=== PATIENT | male | born 1935 | race Caucasian/White ===

== ENCOUNTER 2016-10-03 05:55 | Inpatient (IN) | payer BC, MEDICARE ==
--- NOTE | 2016-09-27 23:41 | HP ---
PREOPERATIVE HISTORY AND PHYSICAL: DATE OF OFFICE VISIT: 09/27/16 DATE OF ADMISSION/SURGERY: 10/03/16 ATTENDING SURGEON: Esau Gentile MD PROCEDURE: Left total knee replacement. CHIEF COMPLAINT: Left knee pain. HISTORY OF PRESENT ILLNESS: Mr. Han is an 80-year-old male who presents to the clinic for ongoing left knee pain due to severe osteoarthritis. He has failed conservative measures to include Tylenol, bracing, and injections and therefore has agreed to undergo a left total hip replacement with Dr. Gentile on 10/03/16. PAST MEDICAL HISTORY: History of pulmonary embolism 30 years ago, has not had a repeat episode, the original episode was related to trauma and benign prostatic hypertrophy. PAST SURGICAL HISTORY: 1. Total hip replacement in 2013. 2. Bilateral knee arthroscopic surgery. 3. Tonsillectomy and adenoidectomy. 4. Appendectomy. 5. Left prosthetic eye surgery in 1994. 6. Pelvic surgery in 2006. MEDICATIONS: 1. Oxycodone 5 mg 1/2 to 1 tablet by mouth every 4 to 6 hours as needed. 2. Terazosin HCl 5 mg 1 by mouth daily. 3. Finasteride 5 mg 1 by mouth daily. 4. Glucosamine/chondroitin 2 by mouth daily. 5. Fish oil 1200 mg 1 by mouth daily. 6. One Daily Adults 50 Plus 1 by mouth daily. 7. Tylenol extra strength 500 mg 2 tabs by mouth as needed. 8. Dulcolax 5 mg 1 by mouth as needed. ALLERGIES: SULFA ANTIBIOTICS. FAMILY HISTORY: Denies. SOCIAL HISTORY: The patient lives with his . 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 Denies smoking. Occasional alcohol consumption. REVIEW OF SYSTEMS: General: Negative for fever, chills, or night sweats. No known anesthesia problems. HEENT: Negative for headache, lightheadedness, or syncopal episodes. Integumentary: Negative for abrasions, lesions, or open wounds. Cardiothoracic: Negative for chest pain, palpitations, or edema. Negative for hypertension. Pulmonary: Negative for shortness of breath with exertion, chronic cough, or COPD. GI: Negative for nausea, vomiting, diarrhea , constipation, or GERD. : Positive for BPH. Negative for history of UTIs or kidney problems. Musculoskeletal: Positive for current complaint. Neurologic: Negative for paresthesias, numbness, history of seizure, stroke, or epilepsy. Endocrine: Negative for diabetes or thyroid issues. Hematologic: Negative for easy bruising, anemia, or excessive bleeding. Positive for history of DVT. Infectious Disease: Negative for history of MRSA, hepatitis C, or HIV. PHYSICAL EXAMINATION GENERAL: A well-developed, well-nourished 80-year-old male, in no acute distress. VITAL SIGNS: Height 69, weight 178, pulse 74, blood pressure 114/64, respiratory rate 14, temperature 97.7, BMI 26.3. HEENT: Normocephalic, atraumatic. PERRLA. NECK: Supple. Throat clear. PULMONARY: Lungs are clear to auscultation bilaterally. No wheezing, rhonchi, or rales. CARDIAC: Regular rate and rhythm. S1, S2. No murmurs, gallops, or rubs. No edema. ABDOMEN: Positive bowel sounds. Soft, nontender. NEUROLOGIC: Alert and oriented x3. Cranial nerves grossly intact. Sensation intact to light touch. MUSCULOSKELETAL: Left lower extremity: Skin is intact. Mild effusion and medial joint line tenderness. Range of motion from 0 to 95. MCL and LCL are stable. Stable Priscila's; +2 dorsalis pedis and posterior tibialis pulse. Sensation is intact to light touch distally. DIAGNOSTIC STUDIES: Multiple view x-rays of the left knee revealed severe bone -on- bone medial arthritis with sclerosis and osteophyte formation. Also the presence of patellofemoral arthritis. IMPRESSION: Severe left knee osteoarthritis. PLAN/RECOMMENDATIONS: The patient is scheduled to undergo a left total knee replacement with Dr. Gentile on 10/03/16. He states he has been cleared by his primary care doctor, Dr. Malhotra. He will return to the clinic in one month postop for followup and x-ray. A prescription for Percocet was sent to his pharmacy for postoperative pain management. He was instructed to take [id number] stool softeners for opioid-induced constipation. PRIYA WILBURN [id number]/[facility] #: [id number] [facility] HOSPITALAngela
[~2016-10-03 05:55] MED LIST: Buffered Lidocaine 1% SYR 3ML* 3 ML/SYR SYRINGE INTRADERM ONE
[2016-10-03] MEDS ORDERED: ceFAZolin 2 GM PREMIX (*) 2 GM/50 ML BAG IVPB ONE (06:11)
[2016-10-03] MEDS ORDERED: Bupivacaine 0.5% W/EPI SDV* 30 ML VIAL ONE ×2 (07:23→08:31)
[2016-10-03] MEDS ORDERED: Midazolam* 1 MG/ML 5 ML VIAL (5 MG) ONE (07:32)
[2016-10-03] MEDS ORDERED: fentaNYL* 50 MCG/ML 2 ML VIAL (100 MCG VIAL) ONE (07:32)
[2016-10-03] MEDS ORDERED: Morphine PF AMP (0.5MG/ML)* 5 MG/10 ML AMP ONE (07:34)
[2016-10-03] MEDS ORDERED: Bupivacaine 0.5% SDV PF* 30 ML VIAL ONE (08:03)
[2016-10-03] MEDS ORDERED: Propofol* 10 MG/ML 20 ML BTL IV PUSH ONE (08:17)
[2016-10-03] MEDS ORDERED: Ondansetron INJ* 2 MG/ML VIAL IV PRN ×2 (08:51→11:08)
[2016-10-03] MEDS ORDERED: fentaNYL* 50 MCG/ML 2 ML VIAL (100 MCG VIAL) IV PRN (08:51)
[2016-10-03] MEDS ORDERED: Nalbuphine* 20 MG/ML 1 ML VIAL IV PRN (08:51)
[2016-10-03] MEDS ORDERED: DiMENhydriNATE IV* 50 MG/ML VIAL IV PUSH PRN (08:51)
[2016-10-03] MEDS ORDERED: Metoclopramide IV* 5 MG/ML 2 ML VIAL IV PRN (08:51)
[2016-10-03] MEDS ORDERED: Naloxone* 0.4 MG/ML 1 ML VIAL IV PRN (08:51)
[2016-10-03] MEDS ORDERED: HYDROmorphone INJ* 1 MG/ML CARPUJECT SYRINGE IV PRN (08:51)
[2016-10-03] MEDS ORDERED: oxyCODONE/Acetamin 5/325 MG* TAB PO PRN (11:08)
[2016-10-03] MEDS ORDERED: diPHENhydraMINE IV* 50 MG/ML 1 ml VIAL (BENADRYL) IV PRN (11:08)
[2016-10-03] MEDS ORDERED: Temazepam CAP* 15 MG PO PRN (11:08)
[2016-10-03] MEDS ORDERED: Acetaminophen TAB* 325 MG PO PRN (11:08)
--- NOTE | 2016-10-03 12:33 | RAD ---
HISTORY: Postop left knee arthroplasty COMPARISONS: February 14, 2016 VIEWS: 2, Frontal and lateral views of the left knee FINDINGS: BONE DENSITY: Normal. BONES: The patient is status post left knee arthroplasty. There is no hardware failure or osteolysis. JOINTS: The patient is status post left knee arthroplasty. ALIGNMENT: There is no dislocation. SOFT TISSUES: There is post surgical change to the soft tissues. OTHER FINDINGS: None. IMPRESSION: STATUS POST LEFT KNEE ARTHROPLASTY
[2016-10-03] MEDS: ceFAZolin 1 GM in Dextrose (*) 1 GM/50 ML BAG IVPB SCH ×2 (16:03→21:18)
[2016-10-03] MEDS: oxyCODONE/Acetamin 5/325 MG* TAB PO PRN ×3 (16:35→23:06)
[2016-10-03] MEDS: Ferrous Sulfate TAB* 325 MG PO SCH (20:55)
[2016-10-03] MEDS: Finasteride TAB* 5 MG PO SCH (20:55)
[2016-10-03] MEDS: Terazosin CAP* 5 MG PO SCH (20:55)
[2016-10-04] MEDS: oxyCODONE/Acetamin 5/325 MG* TAB PO PRN ×5 (04:15→21:41)
[2016-10-04] MEDS: ceFAZolin 1 GM in Dextrose (*) 1 GM/50 ML BAG IVPB SCH (05:51)
[2016-10-04 06:07] LABS: Hematocrit 30 % (42-52); Hemoglobin 10.3 g/dl (14.0-18.0)
[2016-10-04 06:23] LABS: BUN/Creatinine Ratio 22.6 (8-20); EGFR Non-African American 77.8 (>60); Potassium 4.3 mmol/L (3.5-5.0)
[2016-10-04] MEDS: Morphine INJ* 2 MG/ML 1 ML CARPUJECT IV PRN (07:18)
[2016-10-04] MEDS ORDERED: oxyCODONE TAB* 5 MG TAB PO PRN (08:18)
--- NOTE | 2016-10-04 08:24 | PN ---
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 His pain control is good - he anticipates constipation. Active Problems: Active Problems History of arthroplasty of left knee (Acute) Z96.652 Pulse irregularity (Acute) R09.89 COPD (chronic obstructive pulmonary disease) (Chronic) J44.9 History of melanoma (Chronic) Z85.820 History of pelvic fracture (Chronic) Z87.81 History of prostate cancer (Chronic) Z85.46 History of total right hip arthroplasty (Chronic) Z96.641 Hypercholesterolemia (Chronic) E78.00 Spinal stenosis (Chronic) M48.00 Current Medications: Current Medications Acetaminophen (Tylenol Tab*) 650 mg PO Q4H PRN PRN Reason: PAIN Aspirin (Aspirin Tab*) 325 mg PO DAILY [facility] Bisacodyl (Dulcolax Supp*) 10 mg MO DAILY PRN PRN Reason: constipation Diphenhydramine HCl (Benadryl Iv*) 12.5 mg IV Q6H PRN PRN Reason: PRURITIS Docusate Sodium (Colace Cap*) 100 mg PO BID [facility] Enoxaparin Sodium (Lovenox(*)) 30 mg SUBCUT Q24H [facility] Ferrous Sulfate (Ferrous Sulfate Tab*) 325 mg PO BID [facility] Last Admin: 10/03/16 20:55 Dose: 325 mg Finasteride (Proscar Tab*) 5 mg PO BEDTIME [facility] Last Admin: 10/03/16 20:55 Dose: 5 mg Fish Oil (Fish Oil (Nf)) 1,200 mg PO DAILY [facility] PRN Reason: Protocol Lactated Ringer's (Lactated Ringers 1000 Ml Bag*) 1,000 mls @ 100 mls/hr IV PER RATE [facility] Last Admin: 10/04/16 05:55 Dose: 100 mls/hr Morphine Sulfate (Morphine Inj (Syringe)*) 1 mg IV Q2H PRN PRN Reason: PAIN Last Admin: 10/04/16 07:18 Dose: 1 mg Multivitamins/Minerals (Theragran/Minerals Tab*) 1 tab PO DAILY [facility] Ondansetron HCl (Zofran Inj*) 4 mg IV Q6H PRN PRN Reason: nausea Oxycodone/Acetaminophen (Percocet 5/325 Tab*) 1 tab PO Q4H PRN PRN Reason: PAIN Last Admin: 10/03/16 23:46 Dose: 1 tab Oxycodone/Acetaminophen (Percocet 5/325 Tab*) 2 tab PO Q4H PRN PRN Reason: PAIN Last Admin: 10/04/16 04:15 Dose: 2 tab Polyethylene Glycol/Electrolytes (Miralax*) 17 gm PO DAILY PRN PRN Reason: Constipation Temazepam (Restoril Cap*) 15 mg PO BEDTIME PRN PRN Reason: INSOMNIA Terazosin HCl (Hytrin Cap*) 5 mg PO BEDTIME [facility] Last Admin: 10/03/16 20:55 Dose: 5 mg - Review of Systems Pulmonary: Positive: COPD Negative: Cough, Sputum, Hemoptysis, Wheezing, Respiratory Distress, Shortness of Breath Cardiology: Negative: Chest Pain, Palpitations, Swelling of Ankles Gastroenterology: Negative: Abdominal Pain, Nausea, Vomiting Home Medications: Home Medications Medication Instructions Recorded Confirmed Type Finasteride TAB* [Proscar TAB*] 5 mg PO BEDTIME 07/04/12 10/03/16 History Terazosin CAP* [Hytrin CAP 5 MG*] 5 mg PO BEDTIME 07/04/12 10/03/16 History Acetaminophen TAB* [Tylenol TAB*] 650 mg PO BID PRN 06/11/13 10/03/16 History Kqxbnqhltud-Czebxupmygn-Jmhtgj 1 pow PO DAILY 06/11/13 10/03/16 History [Glucosamine & Chrondroiti] Multiple Vitamins W/ Minerals 1 liq PO DAILY 06/11/13 10/03/16 History [Multivitamin] [place]-3 Fatty Acids [Fish Oil] 1,200 mg PO DAILY 06/11/13 10/03/16 History Allergies: Allergies Allergy/AdvReac Type Severity Reaction Status Date / Time Sulfamethoxazole Allergy Intermediate Rash Verified 10/03/16 06:22 w/Trimethoprim [From Bactrim] Sulfa Antibiotics Allergy rash/hives Verified 10/03/16 06:23 Objective - Vital Signs Vital Signs: Vital Signs 10/03/16 10/03/16 10/03/16 10:47 10:50 10:55 Temperature 97.5 F Pulse Rate 58 56 58 Respiratory 12 12 12 Rate Blood Pressure 113/54 113/56 115/53 (mmHg) O2 Sat by Pulse 98 97 97 Oximetry 10/03/16 10/03/16 10/03/16 11:00 11:05 11:15 Temperature Pulse Rate 56 56 56 Respiratory 12 12 12 Rate Blood Pressure 115/56 102/56 115/57 (mmHg) O2 Sat by Pulse 97 97 97 Oximetry 10/03/16 10/03/16 10/03/16 11:30 11:45 12:00 Temperature 97.0 F Pulse Rate 57 60 57 Respiratory 12 12 12 Rate Blood Pressure 117/57 113/73 122/61 (mmHg) O2 Sat by Pulse 99 95 97 Oximetry 10/03/16 10/03/16 10/03/16 12:15 12:30 12:45 Temperature Pulse Rate 56 56 57 Respiratory 12 12 12 Rate Blood Pressure 114/62 115/62 121/89 (mmHg) O2 Sat by Pulse 98 97 99 Oximetry 10/03/16 10/03/16 10/03/16 13:08 13:39 13:54 Temperature 96.9 F 97.3 F Pulse Rate 56 57 62 Respiratory 14 16 Rate Blood Pressure 110/62 120/57 (mmHg) O2 Sat by Pulse 99 98 97 Oximetry 10/03/16 10/03/16 10/03/16 15:05 15:23 15:51 Temperature 97.9 F 98.0 F Pulse Rate 58 59 Respiratory 16 16 16 Rate Blood Pressure 121/61 126/67 (mmHg) O2 Sat by Pulse 99 99 Oximetry 10/03/16 10/03/16 10/03/16 16:35 17:09 19:00 Temperature 97.4 F Pulse Rate 64 Respiratory 16 16 16 Rate Blood Pressure 136/59 (mmHg) O2 Sat by Pulse 99 Oximetry 10/03/16 10/03/16 10/03/16 19:01 19:51 20:00 Temperature 97.5 F Pulse Rate 68 Respiratory 16 16 16 Rate Blood Pressure 121/65 (mmHg) O2 Sat by Pulse 97 Oximetry 10/03/16 10/03/16 10/03/16 20:51 21:00 21:51 Temperature Pulse Rate Respiratory 16 18 17 Rate Blood Pressure (mmHg) O2 Sat by Pulse Oximetry 10/03/16 10/03/16 10/03/16 23:06 23:35 23:46 Temperature 98.5 F Pulse Rate 73 Respiratory 16 16 16 Rate Blood Pressure 105/56 (mmHg) O2 Sat by Pulse 96 Oximetry 10/04/16 10/04/16 10/04/16 00:00 01:06 01:46 Temperature Pulse Rate Respiratory 16 16 Rate Blood Pressure (mmHg) O2 Sat by Pulse 96 Oximetry 10/04/16 10/04/16 10/04/16 04:07 04:15 04:30 Temperature 98.4 F Pulse Rate 73 Respiratory 18 18 Rate Blood Pressure 99/56 113/66 (mmHg) O2 Sat by Pulse 97 Oximetry 10/04/16 10/04/16 10/04/16 06:15 07:16 07:18 Temperature 97.5 F Pulse Rate 75 Respiratory 18 16 20 Rate Blood Pressure 117/64 (mmHg) O2 Sat by Pulse 96 Oximetry - Intake and Output Intake and Output: Intake & Output 10/01/16 10/02/16 10/03/16 10/04/16 11:59 11:59 11:59 11:59 Intake Total 1550 2175 Output Total 425 1100 Balance 1125 1075 Weight 184 lb 3.2 oz Intake: IV Fluids 1550 1215 LR 1500 1095 NS 50ML, Cefazolin 2G 50 cefazolin 120 Oral 960 Output: Gonzalez 325 900 Autotransfusion Amount 100 200 Other: # Bowel Movements 0 ADLs: Meal Record Start: 10/03/16 14: 02 Freq: Status: Active Created 10/03/16 14:02 [id number] (Rec: 10/03/16 14:02 [id number]) Document 10/03/16 19:49 [id number] (Rec: 10/03/16 19:49 [id number] [id number]) Intake and Output Start: 10/03/16 11: 08 Freq: 06,14,2200 Status: Complete Created 10/03/16 11:17 [id number] (Rec: 10/03/16 11:17 [id number]) Intake and Output Start: 10/03/16 14: 02 Freq: DAILY@0600,1400,2200 Status: Active Created 10/03/16 14:02 [id number] (Rec: 10/03/16 14:02 [id number] [id number]) Document 10/03/16 22:00 [id number] (Rec: 10/03/16 22:45 [id number] SSU-C06) Document 10/04/16 05:25 [id number] (Rec: 10/04/16 05:25 [id number] [id number]) - Physical Exam General: No Cyanosis, No Anemia, No Jaundice, No Clubbing Skin: Normal: Rash Lungs and Chest: Yes: Chest Expansion Full, Chest Expansion Symetrica, Percussion Note Resonant, Vessicular Breath Sounds. No: Crackles, Wheezes Heart Rate and Rhythm: Irregular - regular with pauses ? extrasystoles JVP: Not Elevated Additional Cardiovascular: Yes: Normal Heart Sounds. No: Heart Murmur, Pedal Edema Abdominal Exam: Yes: Soft, Bowel Sounds Present. No: Distention, Abdominal Mass , Hepatomegaly, Abdominal Tenderness Results - Results Lab Results: Laboratory Results - last 24 hr 10/04/16 10/04/16 05:47 05:47 Hgb 10.3 L Hct 30 L Sodium 135 Potassium 4.3 Chloride 106 Carbon Dioxide 29 Anion Gap 0 L BUN 21 Creatinine 0.93 Est GFR ( Amer) 100.0 Est GFR (Non-Af Amer) 77.8 BUN/Creatinine Ratio 22.6 H Glucose 103 H Calcium 8.0 L Assessment - Problem List Assessment: Patient Problems History of arthroplasty of left knee (Acute) Pulse irregularity (Acute) COPD (chronic obstructive pulmonary disease) (Chronic) History of melanoma (Chronic) History of pelvic fracture (Chronic) History of prostate cancer (Chronic) History of total right hip arthroplasty (Chronic) Hypercholesterolemia (Chronic) Spinal stenosis (Chronic) Plan: Pulse irregularity (Acute) I will obtain an EKG to rule out atrial fibrillation. His rate is fine. He has no symptoms from this. His electrolytes are fine. History of arthroplasty of left knee (Acute) He is doing well COPD (chronic obstructive pulmonary disease) (Chronic) secondary diagnosis History of melanoma (Chronic) History of pelvic fracture (Chronic) History of prostate cancer (Chronic) History of total right hip arthroplasty (Chronic) Hypercholesterolemia (Chronic) secondary diagnosis Spinal stenosis (Chronic)secondary diagnosis I discussed the above with the patient directly
--- NOTE | 2016-10-04 08:39 | PN ---
Progress Note - Progress Note SOAP: Subjective: []Patient seen at bedside. Having some breakthrough pain. Requesting pain medication for the breaktrough pain. Denies SOB, or Chest pain. Medicine consult was placed for irregular heart rate. Objective: [] Vital Signs Temp 97.5 F 10/04/16 07:16 Pulse 75 10/04/16 07:16 Resp 20 10/04/16 08:00 BP 117/64 10/04/16 07:16 Pulse Ox 96 10/04/16 08:00 Intake & Output 10/03/16 10/04/16 10/04/16 18:59 06:59 18:59 Intake Total 1650 2075 Output Total 725 800 Balance 925 1275 Intake: IV Fluids 1650 1115 LR 1600 995 NS 50ML, Cefazolin 2G 50 cefazolin 120 Oral 960 Output: Gonzalez 425 800 Autotransfusion Amount 300 Other: # Bowel Movements 0 Laboratory Results - last 24 hr 10/04/16 10/04/16 05:47 05:47 Hgb 10.3 L Hct 30 L Sodium 135 Potassium 4.3 Chloride 106 Carbon Dioxide 29 Anion Gap 0 L BUN 21 Creatinine 0.93 Est GFR ( Amer) 100.0 Est GFR (Non-Af Amer) 77.8 BUN/Creatinine Ratio 22.6 H Glucose 103 H Calcium 8.0 L Left knee dressing saturated posterior region of the dressing Hemovac drain discontinued without difficulty moderately saturated bloody drainage on dressings Incision benign Calf non tender neuro intact New betadine soaked telfa applied to incision and hemovac site, Kerlex and Shabbir Assessment: []s/p Left total knee arthroplasty POD #1 Plan: []PT/ OT WBAT Lovenox x 2 days then ASA daily Appreciate medical consult: EKG pending to r/o Afib
[2016-10-04] MEDS: Multivitamins/Minerals TAB PO SCH (09:01)
[2016-10-04] MEDS: Enoxaparin(*) 30 MG/0.3 ML SYR SUBCUT SCH (09:01)
[2016-10-04] MEDS: Aspirin TAB* 325 MG PO SCH (09:02)
[2016-10-04] MEDS: Ferrous Sulfate TAB* 325 MG PO SCH ×2 (09:02→21:42)
[2016-10-04] MEDS: OMEGA-3 FATTY ACIDS (NF) 1,000 MG CAP PO SCH (09:03)
--- NOTE | 2016-10-04 19:40 | OP ---
DATE OF OPERATION: 10/03/16 - ROOM #348 DATE OF : 31 SURGICAL CARE: Left knee. SURGEON: Esau Gentile MD ASSISTANTS: 1. PRIYA Mckee, senior administrative assistant. 2. Estee, second assist. ANESTHESIOLOGIST: Isamar Bangura MD ANESTHESIA: Spinal with Duramorph and IV sedation. PRE-OP DIAGNOSIS: Severe arthritis of the left knee with varus deformity. POST-OP DIAGNOSIS: Severe arthritis of the left knee with varus deformity. OPERATIVE PROCEDURE: Left total knee replacement. INDICATIONS: Severe arthritis to the left knee. He has had multiple cortisone injections over the year, the injections have been no longer helpful. He has had trouble living with the pain from this knee and he wanted to risk and proceed with a knee replacement and we agreed. COMPONENTS: Lucie Persona knee was utilized, posterior stabilized size 9 femur , 35 patella, size F tibia, and an 11 articular surface. COMPLICATIONS: There were no complications. DRAINS: Two blood collection drains in the left knee at the end of the case. BLOOD LOSS: 250 mL. REPLACEMENT: Crystalloid fluids. DESCRIPTION OF PROCEDURE: The patient was brought to the operating room and placed on the operating room table in the supine position. Following the administration of the anesthetic, he was returned to the supine position, a Gonzalez catheter was inserted. The left foot was noted to have intact posterior tibial and dorsalis pedis pulses. The left leg was wrapped with a proximal thigh tourniquet. The left knee was noted to have slight flexion contracture and the left leg was then prepped preliminary with chlorhexidine and given a formal prep from the tourniquet to the tips of the toes with ChloraPrep. After prepping and draping and sealing off, we did our universal protocol time-out confirming Levy Han and the plan for left total knee replacement. We all agreed and we proceeded. The surgical care was done most of the time without tourniquet. We used tourniquet at the clean up and cementing phase of the case. The surgery was done with the foot on a foot piece and the knee acutely flexed to decrease bleeding. The skin incision went from the medial aspect of the tibial tubercle to two fingerbreadths proximal to the superior pole of the patella. The skin and subcu divided down to the prepatellar bursa. The bursa was traversed. The quadriceps tendon was visualized and the tendon was then opened 3 to 4 cm proximal to the superior pole of the patella, staying as close to vastus medialis muscle as possible for good tendon healing. The knee was entered medial parapatellar and the anteromedial soft tissues on the tibia were divided down to the bone just a centimeter medial to the tibial tubercle. The anteromedial soft tissues on the tibia were elevated subperiosteally going around to the deep MCL and little later to the posteromedial corner of the knee. Hemostasis was checked and achieved throughout the case utilizing electrocautery. The knee had clear goldish synovial fluid and complete eburnation of bone, medial femoral condyle, medial tibial plateau with large osteophytes, osteophytes in the intercondylar notch, and trochlea. Once our initial exposure was made, then the infrapatellar fat pad was excised and the synovectomy completed around the patella, we removed the remainder of the anterior horn medial meniscus. The intercondylar notch osteophytes removed and the distal anterior femur was exposed subperiosteally for referencing and measuring. The ACL and PCL were uplifted from their femoral origins. The tibia was made so it could be subluxated forward from under the femur and the PCL was carefully excised. Great care was taken while working posteriorly in the knee with careful hemostasis. The lateral meniscus was then excised and our goal here was to stay just at the periphery of the lateral meniscus to avoid the lateral geniculate. The proximal tibial cut was made. First our goal here was to have a tibial surface that would be perpendicular to the long axis of the tibia and have a slight posterior slope removing a millimeter or two from the low side medially and 10 to 14 mm from the high side laterally. After this cut was completed, then the femoral intramedullary drill was utilized. The femoral canal was entered with a drill and the femur was suctioned to discourage embolization. The distal femoral cutting guide was applied on #1 because of some flexion contracture and 6 degrees of valgus and the distal femoral cuts were completed. The femur was then measured for a size 9 and the rotational holes were inserted for the 9 block. The cuts on the distal femur were then completed, anterior and posterior chamfering as well. We then finished removal of the posterior horn medial meniscus carefully preserving the MCL, posterior medial femoral condyle osteophyte, loose bodies on the posterior joint line, and posterior horn lateral meniscus. At this stage, we had nice ligamentous balance in 90 degrees of flexion and an extension within an 11 block. The femur was completed with the intercondylar cut out. The tibia was then completed for a size F, and the knee was articulated and extended with F tibia, 11 articular surface, and a 9 femur with full knee extension, good ligamentous balance in extension, and good ligamentous balance in 90 degrees of flexion. The patella was cut flat and 35 was chosen. Three drill holes were made and these were undercut. In the sclerotic portion of the patella, a drill hole was made and some cartilage was removed from the lateral patellar facet. The femoral canal was cleaned x6 with saline suctioned empty and then bone plug inserted. The leg, knee, and thigh then exsanguinated with Clyde tourniquet. The thigh tourniquet elevated to 275. We did clean up knee in extension with 2.5 L of pulsed saline irrigation irrigating all portions of the knee, medial and lateral gutters, posterior joint lines around the tibia. The knee was flexed and retractors were put into position and all the bony surfaces were again cleaned with pulsed saline and then all surfaces were dried. The cement was mixed and the components were cemented into position, patella followed by tibia , followed by femur, each was impacted, excess cement was removed and the knee was articulated and extended during the final hardening. Once the cement was hardened, we checked posteriorly for retained pieces of cement. The tourniquet was deflated. Hemostasis was checked and achieved utilizing electrocautery as we proceeded with closure. The posteromedial soft tissues were infiltrated with Marcaine 0.5% with epinephrine 20 mL, lateral tissues 5 mL, in the proximal medial 5 mL, and then another 5 mL distally. The quad was infiltrated some with Marcaine and after our final irrigation of the joint, another 10 cc of Marcaine was placed free in the joint as we finished our closure and total of 38 to 40 mL of the Marcaine was utilized with epinephrine. Blood collections drains were brought out the superolateral, suprapatellar pouch. The quad mechanism reapproximated with interrupted #1 Polysorb in a figure-of-8 fashion, more distally we used 0 Polysorb. The deep bursa closed with interrupted 0 Polysorb, and then on the superficial subcu a 3-0 Polysorb, and then lexy on the skin. We irrigated several times during closure with saline. The drains as noted and the knee was flexed and extended completely several times during closure to encourage easier flexion in the postoperative period. The posterior tibial pulses 2+ at the end of the case and after dressing with some Betadine-soaked release, sterile gauze, sterile Webril, cryotherapy cuff, ABD pads, and then 6-inch Shabbir bandage loosely applied. The drain was secured with paper tape. The patient was returned to the hospital bed in the recovery room in stable and satisfactory condition having tolerated the procedure very well. [id number]/[facility] #: [id number] JESUS
[2016-10-04] MEDS: Terazosin CAP* 5 MG PO SCH (21:42)
[2016-10-04] MEDS: Finasteride TAB* 5 MG PO SCH (21:42)
[2016-10-04] MEDS: Docusate CAP* 100 MG PO SCH (21:53)
[2016-10-04] MEDS: Polyethylene Glycol 3350* 17 GM PACKET PO PRN (22:22)
[2016-10-05] MEDS: oxyCODONE/Acetamin 5/325 MG* TAB PO PRN ×5 (01:53→21:37)
[2016-10-05 05:01] LABS: Hematocrit 30 % (42-52); Hemoglobin 10.2 g/dl (14.0-18.0)
[2016-10-05 05:03] LABS: Comments Flag Yes
[2016-10-05] MEDS: Morphine INJ* 2 MG/ML 1 ML CARPUJECT IV PRN ×2 (05:54→21:17)
[2016-10-05] MEDS: Aspirin TAB* 325 MG PO SCH (09:05)
[2016-10-05] MEDS: Enoxaparin(*) 30 MG/0.3 ML SYR SUBCUT SCH (09:05)
[2016-10-05] MEDS: Docusate CAP* 100 MG PO SCH ×2 (09:05→21:18)
[2016-10-05] MEDS: Ferrous Sulfate TAB* 325 MG PO SCH ×2 (09:05→21:18)
[2016-10-05] MEDS: Multivitamins/Minerals TAB PO SCH (09:05)
[2016-10-05] MEDS: OMEGA-3 FATTY ACIDS (NF) 1,000 MG CAP PO SCH (09:08)
[2016-10-05] MEDS: Magnesium Hydroxide LIQ* 30 ML UDC PO PRN ×2 (09:26→15:19)
--- NOTE | 2016-10-05 10:44 | DS ---
Discharge Summary Date of Admission: 10/03/2016 Date of Discharge: Provider: Dr. Fara Gentile Principle Diagnosis: Left osteoarthritis, s/p total knee arthroplasty 2016 Secondary Diagnoses: See H&P Principle procedure: LEFT total knee arthroplasty Consultations: Physical therapy, Occupational therapy HPI: Refer to H&P Hospital Course: The patient was admitted on 10/03/2016 and underwent a left total knee arthroplasty. He tolerated the procedure well and there were no complications. The patient had spinal anesthesia and was quite comfortable in the immediate postoperative period. On POD#1 the patients H&H was 10.3/30. Dressing was CDI, he was neurovascularly intact with good sensation distal to the knees bilaterally. He could demonstrate dorsi and plantar flexion with good strength. Participation in physical and occupational therapy was begun. Pain management was controlled with oral oxycodone and Percocet. On POD#2 the urinary catheter was discontinued and the patient was able to void spontaneously. The dressing was changed and the wound was found to be benign with minimal drainage and erythema. Vital signs were stable and the patient was afebrile. POD#3 bowel and bladder had normalized and the patient was cleared by physical therapy for safe discharge to home with services. He will continue with the exercises learned with physical therapy and arrangements were made for visiting home physical therapy as well. At discharge the H&H was 9.9/ 29 and vital signs were stable. The patient will continue to have aspirin daily for DVT prophylaxis. The patient will resume the home medications as indicated in the discharge instructions. [place] will be removed in 10-14 days by visiting home nurse services. New medications at discharge: Oxycodone 5 mg 1-2 tabs po Q4-6 hours prn pain Aspirin 325 mg PO daily Colace 100 mg 1 po BID Condition: Stable Disposition: Home with home health PT Follow up: Patient will follow up with Dr. Gentile in 4-6 weeks at [facility] Orthopedics Active Medications Generic Name Dose Route Start Last Admin Trade Name Freq PRN Reason Stop Dose Admin Acetaminophen 650 mg 10/03/16 11:08 Tylenol Tab* PO Q4H PRN PAIN Aspirin 325 mg 10/04/16 09:00 10/06/16 08:45 Aspirin Tab* PO 325 mg DAILY VIVIENNE Administration Bisacodyl 10 mg 10/05/16 11:08 10/06/16 07:21 Dulcolax Supp* [place] 10 mg DAILY PRN Administration constipation Diphenhydramine HCl 12.5 mg 10/03/16 11:08 Benadryl Iv* IV Q6H PRN PRURITIS Docusate Sodium 100 mg 10/04/16 21:00 10/06/16 08:44 Colace Cap* PO 100 mg BID VIVIENNE Administration Enoxaparin Sodium 30 mg 10/04/16 09:00 10/06/16 08:45 Lovenox(*) SUBCUT 30 mg Q24H VIVIENNE Administration Ferrous Sulfate 325 mg 10/03/16 21:00 10/06/16 08:44 Ferrous Sulfate Tab* PO 325 mg BID VIVIENNE Administration Finasteride 5 mg 10/03/16 21:00 10/05/16 21:18 Proscar Tab* PO 5 mg BEDTIME VIVIENNE Administration Fish Oil 1,200 mg 10/04/16 09:00 10/06/16 08:45 Fish Oil (Nf) PO Not Given DAILY [facility] Protocol Lactated Ringer's 1,000 mls @ 100 mls/hr 10/03/16 12:00 10/04/16 05:55 Lactated Ringers 1000 Ml Bag* IV 100 mls/hr PER RATE VIVIENNE Administration Magnesium Hydroxide 30 ml 10/05/16 08:49 10/05/16 15:19 Milk Of Magnesia Liq* PO 30 ml Q6H PRN Administration CONSTIPATION Morphine Sulfate 1 mg 10/03/16 11:08 10/05/16 21:17 Morphine Inj (Syringe)* IV 1 mg Q2H PRN Administration PAIN Multivitamins/Minerals 1 tab 10/04/16 09:00 10/06/16 08:45 Theragran/Minerals Tab* PO 1 tab DAILY VIVIENNE Administration Ondansetron HCl 4 mg 10/03/16 11:08 10/04/16 14:02 Zofran Inj* IV 4 mg Q6H PRN Administration nausea Oxycodone HCl 10 mg 10/04/16 08:18 10/05/16 09:22 Roxycodone Tab* PO 10 mg Q4H PRN Administration breakthrough pain Oxycodone/Acetaminophen 1 tab 10/03/16 11:08 10/03/16 23:46 Percocet 5/325 Tab* PO 1 tab Q4H PRN Administration PAIN Oxycodone/Acetaminophen 2 tab 10/03/16 11:08 10/06/16 06:28 Percocet 5/325 Tab* PO 2 tab Q4H PRN Administration PAIN Polyethylene Glycol/Electrolytes 17 gm 10/04/16 21:51 10/05/16 17:42 Miralax* PO 17 gm DAILY PRN Administration Constipation Temazepam 15 mg 10/03/16 11:08 Restoril Cap* PO BEDTIME PRN INSOMNIA Terazosin HCl 5 mg 10/03/16 21:00 10/05/16 21:18 Hytrin Cap* PO 5 mg BEDTIME VIVIENNE Administration Vital Signs Temp 98.4 F 10/06/16 07:08 Pulse 81 10/06/16 07:08 Resp 16 10/06/16 08:28 BP 102/58 10/06/16 07:10 Pulse Ox 92 10/06/16 07:08 Intake & Output 10/05/16 10/06/16 10/06/16 18:59 06:59 18:59 Intake Total 920 840 250 Output Total 980 1100 Balance -60 -260 250 Intake: Oral 920 840 250 Output: Urine 980 1100 Other: Estimated Void Small # Bowel Movements 0 Estimated Stool Amount Medium # Voids 1
[2016-10-05] MEDS ORDERED: Bisacodyl SUPP* 10 MG SUPP PR PRN (11:08)
[2016-10-05 13:04] LABS: Mean Platelet Volume 9 um3 (7.4-10.4)
[2016-10-05] MEDS: Polyethylene Glycol 3350* 17 GM PACKET PO PRN (17:42)
[2016-10-05] MEDS: Finasteride TAB* 5 MG PO SCH (21:18)
[2016-10-05] MEDS: Terazosin CAP* 5 MG PO SCH (21:18)
[2016-10-06] MEDS: oxyCODONE/Acetamin 5/325 MG* TAB PO PRN ×2 (06:28→10:55)
[2016-10-06 07:20] LABS: Hematocrit 29 % (42-52); Hemoglobin 9.9 g/dl (14.0-18.0); Mean Corpuscular HGB Conc 34 g/dl (31-36); Mean Corpuscular Hemoglobin 33 pg (27-31); Mean Corpuscular Volume 96 fL (80-94); Mean Platelet Volume 8 um3 (7.4-10.4); Red Blood Count 3.06 10^6/ul (4.0-5.4); Red Cell Distribution Width 13 % (10.5-15); White Blood Count 9.6 10^3/ul (3.5-10.8)
[2016-10-06 07:31] VITALS: BP 102/58
[2016-10-06] MEDS: Docusate CAP* 100 MG PO SCH (08:44)
[2016-10-06] MEDS: Ferrous Sulfate TAB* 325 MG PO SCH (08:44)
[2016-10-06] MEDS: Enoxaparin(*) 30 MG/0.3 ML SYR SUBCUT SCH (08:45)
[2016-10-06] MEDS: Aspirin TAB* 325 MG PO SCH (08:45)
[2016-10-06] MEDS: Multivitamins/Minerals TAB PO SCH (08:45)
[2016-10-06] MEDS: OMEGA-3 FATTY ACIDS (NF) 1,000 MG CAP PO SCH (08:45)
--- NOTE | 2016-10-06 10:49 | PN ---
Progress Note - Progress Note SOAP: Subjective: []80 year old male s/p L TKR 10/03/2016. Patient overall feeling well, denies any cardaic symptosm, lightheadedness, dizziness. EKG WNLs from yesterday, seen by DR. Malhotra. Patient states pain well controlled. + bm, VSS overnight. Objective: [General- SItting in chair resting comfortably. NAD A&O MSK- Incision C/D/I, dressing replaced, no erythema, lexy intact. minimal ecchymosis around incision. minimal swelling. PT pulses 2+ b/l, + dorsi/ plantarflexion b/l. Sensation to light touch intact b/l. Neg homans sign b/ l. ] Assessment: [80 year old male s/p L TKR 10/03/2016] Plan: [- DVT prophyl- ASA daily, d/c lovenox upon D/C - Continue PT/ OT - D/C to [facility] - FOllow up with Dr. Gentile within 4-6 weeks - Lexy to be removed within 10-12 days by nurse. ] Vital Signs Temp 98.4 F 10/06/16 07:08 Pulse 81 10/06/16 07:08 Resp 16 10/06/16 08:28 BP 102/58 10/06/16 07:10 Pulse Ox 92 10/06/16 07:08 Intake & Output 10/05/16 10/06/16 10/06/16 18:59 06:59 18:59 Intake Total 920 840 250 Output Total 980 1100 Balance -60 -260 250 Intake: Oral 920 840 250 Output: Urine 980 1100 Other: Estimated Void Small # Bowel Movements 0 Estimated Stool Amount Medium # Voids 1 Active Medications Generic Name Dose Route Start Last Admin Trade Name Freq PRN Reason Stop Dose Admin Acetaminophen 650 mg 10/03/16 11:08 Tylenol Tab* PO Q4H PRN PAIN Aspirin 325 mg 10/04/16 09:00 10/06/16 08:45 Aspirin Tab* PO 325 mg DAILY VIVIENNE Administration Bisacodyl 10 mg 10/05/16 11:08 10/06/16 07:21 Dulcolax Supp* [place] 10 mg DAILY PRN Administration constipation Diphenhydramine HCl 12.5 mg 10/03/16 11:08 Benadryl Iv* IV Q6H PRN PRURITIS Docusate Sodium 100 mg 10/04/16 21:00 10/06/16 08:44 Colace Cap* PO 100 mg BID VIVIENNE Administration Enoxaparin Sodium 30 mg 10/04/16 09:00 10/06/16 08:45 Lovenox(*) SUBCUT 30 mg Q24H VIVIENNE Administration Ferrous Sulfate 325 mg 10/03/16 21:00 10/06/16 08:44 Ferrous Sulfate Tab* PO 325 mg BID VIVIENNE Administration Finasteride 5 mg 10/03/16 21:00 10/05/16 21:18 Proscar Tab* PO 5 mg BEDTIME VIVIENNE Administration Fish Oil 1,200 mg 10/04/16 09:00 10/06/16 08:45 Fish Oil (Nf) PO Not Given DAILY [facility] Protocol Lactated Ringer's 1,000 mls @ 100 mls/hr 10/03/16 12:00 10/04/16 05:55 Lactated Ringers 1000 Ml Bag* IV 100 mls/hr PER RATE VIVIENNE Administration Magnesium Hydroxide 30 ml 10/05/16 08:49 10/05/16 15:19 Milk Of Magnesia Liq* PO 30 ml Q6H PRN Administration CONSTIPATION Morphine Sulfate 1 mg 10/03/16 11:08 10/05/16 21:17 Morphine Inj (Syringe)* IV 1 mg Q2H PRN Administration PAIN Multivitamins/Minerals 1 tab 10/04/16 09:00 10/06/16 08:45 Theragran/Minerals Tab* PO 1 tab DAILY VIVIENNE Administration Ondansetron HCl 4 mg 10/03/16 11:08 10/04/16 14:02 Zofran Inj* IV 4 mg Q6H PRN Administration nausea Oxycodone HCl 10 mg 10/04/16 08:18 10/05/16 09:22 Roxycodone Tab* PO 10 mg Q4H PRN Administration breakthrough pain Oxycodone/Acetaminophen 1 tab 10/03/16 11:08 10/03/16 23:46 Percocet 5/325 Tab* PO 1 tab Q4H PRN Administration PAIN Oxycodone/Acetaminophen 2 tab 10/03/16 11:08 10/06/16 06:28 Percocet 5/325 Tab* PO 2 tab Q4H PRN Administration PAIN Polyethylene Glycol/Electrolytes 17 gm 10/04/16 21:51 10/05/16 17:42 Miralax* PO 17 gm DAILY PRN Administration Constipation Temazepam 15 mg 10/03/16 11:08 Restoril Cap* PO BEDTIME PRN INSOMNIA Terazosin HCl 5 mg 10/03/16 21:00 10/05/16 21:18 Hytrin Cap* PO 5 mg BEDTIME VIVIENNE Administration Laboratory Results - last 24 hr 10/05/16 10/06/16 04:22 06:46 WBC 9.6 RBC 3.06 L Hgb 9.9 L Hct 29 L MCV 96 H MCH 33 H MCHC 34 RDW 13 Plt Count 179 188 MPV 9 8 Neut % (Auto) 75.1 Lymph % (Auto) 10.2 L [place] % (Auto) 12.4 H Eos % (Auto) 2.2 Baso % (Auto) 0.1 Absolute Neuts (auto) 7.2 Absolute Lymphs (auto) 1.0 Absolute Monos (auto) 1.2 H Absolute Eos (auto) 0.2 Absolute Basos (auto) 0 Absolute Nucleated RBC 0 Nucleated RBC % 0
== END 2016-10-06 11:15 | disposition home health service (06) | DRG 470 ==
LOC: AA 05:55 → SSU 13:03
PROVIDERS: ADMIT Orthopaedic Surgery; ATTEND Orthopaedic Surgery
PROC: 0SRD0J9 Replacement of Left Knee Joint with Synthetic Substitute, Cemented, Open Approach (ICD-10-PCS; principal; 2016-10-03 07:30)
DX: M17.12 Unilateral primary osteoarthritis, left knee (principal); J44.9 Chronic obstructive pulmonary disease, unspecified; D62 Acute posthemorrhagic anemia; E78.00 Pure hypercholesterolemia, unspecified; N40.0 Benign prostatic hyperplasia without lower urinary tract symptoms; M48.00 Spinal stenosis, site unspecified; Z88.2 Allergy status to sulfonamides; Z82.49 Family history of ischemic heart disease and other diseases of the circulatory system; Z85.820 Personal history of malignant melanoma of skin; Z85.46 Personal history of malignant neoplasm of prostate; Z96.641 Presence of right artificial hip joint; Z86.711 Personal history of pulmonary embolism; Z86.718 Personal history of other venous thrombosis and embolism
CPT/HCPCS: 36415; 80048; 85014; 85018; 85025; 85049; 88305; 88311; 93005; A9270-GY; C1776; J0690; J1650; J2250; J2270; J2405; J2704; J3010